=== PATIENT | female | born 1945 | race Caucasian/White ===

== ENCOUNTER → 2023-10-10 16:05 | Outpatient (CLI) | payer MEDICARE, OTHER, SELFPAY ==
--- NOTE | 2023-10-10 16:11 | DI.MRI.S_ITS ---
PROCEDURE: MR SHOULDER RT WO CON INDICATIONS: TENDINOPATHY RT ROTATOR CUFF TECHNIQUE: Noncontrast oblique coronal T2 fast spin echo with fat saturation, oblique sagittal T1 spin echo and T2 fast spin echo with fat saturation, axial T1 spin echo and T2 fast spin echo with fat saturation through the shoulder. COMPARISON: [facility], [place], XR SHOULDER 2+ VIEWS RIGHT, 09/19/2023, 12:21. FINDINGS: Image quality: Excellent. Rotator cuff: In the supraspinatus, there is full-thickness, near full width tear at the footprint, with tendon retraction to the middle of the humeral head. There is low grade, articular sided tear at the junction of the supraspinatus and infraspinatus. Teres minor is unremarkable. The subscapularis is unremarkable. Mild fatty infiltration of the supraspinatus. No muscle edema. Bones and bursae: Mild degenerative changes acromioclavicular joint. Type 1 acromion. No os acromiale. Mild subacromial/subdeltoid bursitis. Subchondral cystic changes seen in the greater tuberosity, reactive. No focal chondral defect. No acute fracture. Capsule and soft tissues: The labrum is grossly intact. The extra-articular biceps tendon is diminutive and indistinct, likely representing low-grade tear. The intra-articular biceps tendon is unremarkable. No significant glenohumeral effusion. IMPRESSION: 1. Full-thickness, near full width tear of the supraspinatus with tendon retraction. 2. Low-grade tear of the junction of the supraspinatus and infraspinatus. 3. Findings suggestive of low grade partial tear of the extra-articular biceps tendon. Dictated by: Fatuma Padilla M.D. on 10/10/2023 at 19:19 Approved by: Fatuma Padilla M.D. on 10/10/2023 at 19:26
== END ==
LOC: MRI 16:10
PROVIDERS: PCP Internal Medicine; Referring Provider Orthopaedic Surgery; Visit Provider Orthopaedic Surgery
DX: M75.121 Complete rotator cuff tear or rupture of right shoulder, not specified as traumatic (principal); M75.31 Calcific tendinitis of right shoulder; M75.51 Bursitis of right shoulder
CPT/HCPCS: 73221